=== PATIENT | male | born 2000 | race Caucasian/White ===

== ENCOUNTER → 2023-05-10 | Outpatient (CLI) | payer OTHER | END | disposition home or self-care (01) | LOC: LABMN 12:04 | PROVIDERS: ATTEND Chiropractor | DX: E29.1 Testicular hypofunction (principal) | CPT/HCPCS: 84402; 84403 ==

== ENCOUNTER 2023-07-02 14:25 | Inpatient (IN) | payer OTHER ==
[~2023-07-02] VITALS: Ht 177.8 cm; Wt 80.3 kg
[2023-07-02 14:30] VITALS: BP 110/59; PULSE 65; RESP 18; TEMP 97.6; O2SAT 99
[2023-07-02] MEDS ORDERED: ACETAMINOPHEN 325 MG TABLET PO PRN (15:15)
[2023-07-02] MEDS: RIVAROXABAN 15 MG TABLET PO SCH (17:34)
[2023-07-02] MEDS ORDERED: QUEtiapine FUMARATE 25 MG TABLET PO PRN (19:15)
[2023-07-02 20:10] VITALS: BP 96/55; PULSE 87; RESP 19; TEMP 97.5; O2SAT 98
[2023-07-02] MEDS: MELATONIN 3 MG TABLET PO SCH (20:10)
[2023-07-02] MEDS: LevETIRAcetam 500 MG TABLET PO SCH (20:10)
[2023-07-02] MEDS: QUEtiapine FUMARATE 25 MG TABLET PO SCH (20:10)
[2023-07-02] MEDS: ETHYL ALCOHOL 62% ANTISEPTIC NASAL SANITIZER 0.6 ML AMPUL NASAL SCH (20:25)
[2023-07-02 20:57] VITALS: O2SAT 98
[2023-07-02] MEDS ORDERED: CARBOXYMETHYLCELLULOSE SODIUM 0.4 ML OPHTHALMIC SOLUTION [PF] OU PRN (23:30)
[2023-07-02] MEDS ORDERED: LACTULOSE 20 GM/30 ML SOLUTION UDCUP PO PRN (23:30)
[2023-07-03] MEDS: RIVAROXABAN 15 MG TABLET PO SCH ×2 (08:13→16:26)
[2023-07-03] MEDS: ETHYL ALCOHOL 62% ANTISEPTIC NASAL SANITIZER 0.6 ML AMPUL NASAL SCH ×2 (08:13→20:27)
[2023-07-03] MEDS: DIVALPROEX SODIUM 500 MG DR TABLET PO SCH ×3 (08:14→20:27)
[2023-07-03] MEDS: MULTIVITAMINS WITH MINERALS, THERAPEUTIC 15 ML UDCUP PO SCH (08:14)
[2023-07-03] MEDS: LevETIRAcetam 500 MG TABLET PO SCH ×2 (08:15→20:26)
[2023-07-03 08:41] VITALS: BP 129/54; PULSE 64; RESP 18; TEMP 97.8; O2SAT 98
[2023-07-03] MEDS ORDERED: QUEtiapine FUMARATE 25 MG TABLET PO SCH (09:00)
[2023-07-03 17:14] LABS: EOSINOPHILS % (AUTO) 2.2 % (1.0-6.0); HEMATOCRIT 44.5 % (41-53); LYMPHOCYTES # (AUTO) 1.8 K/uL (1.0-4.8); LYMPHOCYTES % (AUTO) 37.9 % (22.0-44.0); MEAN CORPUSCULAR HGB CONC 33.7 G/dL (31.0-37.0); MEAN CORPUSCULAR VOLUME 86 fL (80-100); MONOCYTES # (AUTO) 0.4 K/uL (0.1-1.0); MONOCYTES % (AUTO) 8.6 % (2.0-9.0); NEUTROPHILS # (AUTO) 2.4 K/uL (1.8-7.7); NEUTROPHILS % (AUTO) 50.3 % (40.0-70.0); PLATELET COUNT (AUTO) 198 K/uL (150-450); RED BLOOD CELL COUNT(AUTO) 5.17 MIL/uL (4.50-5.90); RED CELL DISTRIBUTION WIDTH 14.5 % (11.5-14.5)
[2023-07-03 17:34] LABS: ALANINE AMINOTRANSFERASE 49 U/L (12-78); ALBUMIN 3.7 g/dL (3.4-5.0); ALKALINE PHOSPHATASE 111 U/L (46-116); ANION GAP 10 mmol/L (8-16); ASPARTATE AMINOTRANSFERASE 17 U/L (15-37); BILIRUBIN,TOTAL 1.3 mg/dL (0.1-1.0); CALCIUM, TOTAL 9.5 mg/dL (8.8-10.5); CARBON DIOXIDE 28 mmol/L (22-29); CHLORIDE 100 mmol/L (98-107); CREATININE 1.04 mg/dL (0.60-1.30); GLOMERULAR FILTR. RATE CALC > 60 mL/min (>60); GLUCOSE,RANDOM 138 mg/dL (70-110); POTASSIUM 3.7 mmol/L (3.5-5.1); SODIUM SERUM 138 mmol/L (136-145); TOTAL PROTEIN, SERUM 6.9 g/dL (6.4-8.2)
[2023-07-03] MEDS: MELATONIN 3 MG TABLET PO SCH (20:26)
[2023-07-03] MEDS: SENNOSIDES 8.6 MG TABLET PO SCH (20:26)
[2023-07-03] MEDS: QUEtiapine FUMARATE 25 MG TABLET PO SCH (20:27)
[2023-07-03 20:29] VITALS: BP 121/79; PULSE 100; PULSE 99; RESP 20; O2SAT 99
[2023-07-03 22:02] VITALS: O2SAT 99
[2023-07-04] MEDS: ETHYL ALCOHOL 62% ANTISEPTIC NASAL SANITIZER 0.6 ML AMPUL NASAL SCH ×2 (08:04→20:01)
[2023-07-04] MEDS: RIVAROXABAN 15 MG TABLET PO SCH ×2 (08:04→16:36)
[2023-07-04] MEDS: MULTIVITAMINS WITH MINERALS, THERAPEUTIC 15 ML UDCUP PO SCH (08:04)
[2023-07-04] MEDS: DIVALPROEX SODIUM 500 MG DR TABLET PO SCH ×3 (08:04→20:02)
[2023-07-04 08:05] VITALS: BP 114/57; PULSE 78; RESP 18; TEMP 98; O2SAT 98
[2023-07-04] MEDS: LevETIRAcetam 500 MG TABLET PO SCH ×2 (08:05→20:01)
[2023-07-04] MEDS: QUEtiapine FUMARATE 25 MG TABLET PO SCH ×2 (09:33→20:02)
[2023-07-04] MEDS ORDERED: QUEtiapine FUMARATE 25 MG TABLET PO PRN (10:30)
[2023-07-04 11:12] VITALS: O2SAT 98
[2023-07-04 12:30] VITALS: BP 122/68; PULSE 75; RESP 18; TEMP 98.4; O2SAT 98
[2023-07-04] MEDS: PROPRANOLOL HCL 20 MG TABLET PO SCH ×3 (12:31→23:51)
[2023-07-04 18:23] VITALS: BP 127/71; PULSE 72; RESP 18; O2SAT 98
[2023-07-04] MEDS: MELATONIN 3 MG TABLET PO SCH (20:01)
[2023-07-04] MEDS: SENNOSIDES 8.6 MG TABLET PO SCH (20:02)
[2023-07-04 23:50] VITALS: BP 83/59; PULSE 63; PULSE 69; RESP 18; O2SAT 99
[2023-07-04 23:55] VITALS: BP 98/44; PULSE 63
[2023-07-05] VITALS (8 sets, daily range): BP systolic 103–126; BP diastolic 58–75; PULSE 64–80; RESP 18–19; TEMP 97.8–98.2; O2SAT 98–99
[2023-07-05] MEDS: PROPRANOLOL HCL 20 MG TABLET PO SCH ×6 (05:39→20:05)
[2023-07-05] MEDS: RIVAROXABAN 15 MG TABLET PO SCH ×2 (08:15→16:39)
[2023-07-05] MEDS: DIVALPROEX SODIUM 500 MG DR TABLET PO SCH ×3 (08:15→20:05)
[2023-07-05] MEDS: ETHYL ALCOHOL 62% ANTISEPTIC NASAL SANITIZER 0.6 ML AMPUL NASAL SCH ×3 (08:16→21:00)
[2023-07-05] MEDS: QUEtiapine FUMARATE 25 MG TABLET PO SCH ×2 (08:16→20:06)
[2023-07-05] MEDS: MULTIVITAMINS WITH MINERALS, THERAPEUTIC 15 ML UDCUP PO SCH (08:16)
[2023-07-05] MEDS: LevETIRAcetam 500 MG TABLET PO SCH ×2 (08:17→20:05)
[2023-07-05] MEDS: SENNOSIDES 8.6 MG TABLET PO SCH (20:05)
[2023-07-05] MEDS: MELATONIN 3 MG TABLET PO SCH (20:05)
[2023-07-06] VITALS: BP 100/48; PULSE 66
[2023-07-06] MEDS: LevETIRAcetam 500 MG TABLET PO SCH ×2 (08:51→20:02)
[2023-07-06] MEDS: QUEtiapine FUMARATE 25 MG TABLET PO SCH ×2 (08:54→20:05)
[2023-07-06] MEDS: RIVAROXABAN 15 MG TABLET PO SCH ×2 (08:54→17:56)
[2023-07-06] MEDS: ETHYL ALCOHOL 62% ANTISEPTIC NASAL SANITIZER 0.6 ML AMPUL NASAL SCH ×2 (08:55→20:01)
[2023-07-06] MEDS: DIVALPROEX SODIUM 500 MG DR TABLET PO SCH ×3 (08:56→20:01)
[2023-07-06] MEDS: PROPRANOLOL HCL 20 MG TABLET PO SCH ×4 (08:56→20:03)
[2023-07-06 09:41] VITALS: BP 101/63; PULSE 56; RESP 18; TEMP 97.9; O2SAT 98
[2023-07-06] MEDS: MULTIVITAMINS WITH MINERALS, THERAPEUTIC 15 ML UDCUP PO SCH (09:43)
[2023-07-06 10:30] VITALS: O2SAT 98
[2023-07-06] MEDS: MELATONIN 3 MG TABLET PO SCH (20:03)
[2023-07-06 20:04] VITALS: BP 103/60; PULSE 63; RESP 19; O2SAT 98
[2023-07-06] MEDS: SENNOSIDES 8.6 MG TABLET PO SCH (20:04)
[2023-07-06 21:31] VITALS: O2SAT 98
[2023-07-07 08:30] VITALS: BP 101/53; PULSE 51; RESP 18; TEMP 98; O2SAT 98
[2023-07-07] MEDS: PROPRANOLOL HCL 20 MG TABLET PO SCH ×4 (09:00→20:08)
[2023-07-07] MEDS: MULTIVITAMINS WITH MINERALS, THERAPEUTIC 15 ML UDCUP PO SCH (09:24)
[2023-07-07] MEDS: LevETIRAcetam 500 MG TABLET PO SCH ×2 (09:24→20:11)
[2023-07-07] MEDS: RIVAROXABAN 15 MG TABLET PO SCH ×2 (09:25→16:57)
[2023-07-07] MEDS: DIVALPROEX SODIUM 500 MG DR TABLET PO SCH ×3 (09:25→20:07)
[2023-07-07] MEDS: ETHYL ALCOHOL 62% ANTISEPTIC NASAL SANITIZER 0.6 ML AMPUL NASAL SCH ×2 (09:25→20:07)
[2023-07-07] MEDS: QUEtiapine FUMARATE 25 MG TABLET PO SCH ×2 (09:27→20:13)
[2023-07-07 13:52] VITALS: O2SAT 98
[2023-07-07] MEDS: MELATONIN 3 MG TABLET PO SCH (20:11)
[2023-07-07] MEDS: SENNOSIDES 8.6 MG TABLET PO SCH (20:12)
[2023-07-07 22:36] VITALS: BP 116/58; PULSE 58; RESP 18; TEMP 97.8; O2SAT 98
[2023-07-07 22:54] VITALS: O2SAT 100
[2023-07-08] MEDS: DIVALPROEX SODIUM 500 MG DR TABLET PO SCH ×3 (08:27→20:17)
[2023-07-08] MEDS: RIVAROXABAN 15 MG TABLET PO SCH ×2 (08:27→16:46)
[2023-07-08] MEDS: LevETIRAcetam 500 MG TABLET PO SCH ×2 (08:27→20:18)
[2023-07-08] MEDS: QUEtiapine FUMARATE 25 MG TABLET PO SCH ×2 (08:28→20:19)
[2023-07-08] MEDS: MULTIVITAMINS WITH MINERALS, THERAPEUTIC 15 ML UDCUP PO SCH (08:29)
[2023-07-08] MEDS: ETHYL ALCOHOL 62% ANTISEPTIC NASAL SANITIZER 0.6 ML AMPUL NASAL SCH ×2 (08:29→20:20)
[2023-07-08] MEDS: PROPRANOLOL HCL 20 MG TABLET PO SCH ×4 (09:47→20:17)
[2023-07-08 09:53] VITALS: BP 118/68; PULSE 55; RESP 18; TEMP 97.6; O2SAT 96
[2023-07-08 10:01] VITALS: O2SAT 96
[2023-07-08 13:15] VITALS: BP 111/54; PULSE 73
[2023-07-08 16:30] VITALS: BP 106/58; PULSE 55
[2023-07-08] MEDS: MELATONIN 3 MG TABLET PO SCH (20:18)
[2023-07-08] MEDS: SENNOSIDES 8.6 MG TABLET PO SCH (20:18)
[2023-07-08 21:00] VITALS: O2SAT 98
[2023-07-08 23:49] VITALS: BP 106/51; PULSE 62; RESP 18; TEMP 97.7; O2SAT 98
[2023-07-09 08:05] VITALS: BP 122/64; PULSE 75; RESP 18; TEMP 98; O2SAT 98
[2023-07-09] MEDS: ETHYL ALCOHOL 62% ANTISEPTIC NASAL SANITIZER 0.6 ML AMPUL NASAL SCH ×2 (08:28→20:04)
[2023-07-09] MEDS: QUEtiapine FUMARATE 25 MG TABLET PO SCH ×2 (08:28→20:05)
[2023-07-09] MEDS: LevETIRAcetam 500 MG TABLET PO SCH ×2 (08:29→20:04)
[2023-07-09] MEDS: PROPRANOLOL HCL 20 MG TABLET PO SCH ×4 (08:30→20:04)
[2023-07-09] MEDS: DIVALPROEX SODIUM 500 MG DR TABLET PO SCH ×3 (08:30→20:04)
[2023-07-09] MEDS: MULTIVITAMINS WITH MINERALS, THERAPEUTIC 15 ML UDCUP PO SCH (08:30)
[2023-07-09] MEDS: RIVAROXABAN 15 MG TABLET PO SCH ×2 (08:30→16:56)
[2023-07-09 12:50] VITALS: BP 124/67; PULSE 68; RESP 18; O2SAT 98
[2023-07-09 13:22] VITALS: O2SAT 98
[2023-07-09] MEDS: MELATONIN 3 MG TABLET PO SCH (20:04)
[2023-07-09] MEDS: SENNOSIDES 8.6 MG TABLET PO SCH (20:05)
[2023-07-09 20:15] VITALS: BP 111/58; PULSE 68; RESP 19; O2SAT 100
[2023-07-09 21:00] VITALS: O2SAT 100
[2023-07-10 07:15] VITALS: BP 129/58; PULSE 68; RESP 18; TEMP 97.9; O2SAT 100
[2023-07-10] MEDS: ETHYL ALCOHOL 62% ANTISEPTIC NASAL SANITIZER 0.6 ML AMPUL NASAL SCH ×2 (07:18→19:37)
[2023-07-10] MEDS: QUEtiapine FUMARATE 25 MG TABLET PO SCH ×2 (07:18→19:38)
[2023-07-10] MEDS: DIVALPROEX SODIUM 500 MG DR TABLET PO SCH ×3 (07:18→19:38)
[2023-07-10] MEDS: PROPRANOLOL HCL 20 MG TABLET PO SCH ×4 (07:19→19:38)
[2023-07-10] MEDS: LevETIRAcetam 500 MG TABLET PO SCH ×2 (07:19→19:38)
[2023-07-10] MEDS: RIVAROXABAN 15 MG TABLET PO SCH ×2 (07:19→16:34)
[2023-07-10] MEDS: MULTIVITAMINS WITH MINERALS, THERAPEUTIC 15 ML UDCUP PO SCH (07:19)
[2023-07-10 11:42] VITALS: O2SAT 98
[2023-07-10 12:18] VITALS: BP 111/60; PULSE 60
[2023-07-10 16:32] VITALS: BP 110/52; PULSE 59
[2023-07-10] MEDS: MELATONIN 3 MG TABLET PO SCH (19:38)
[2023-07-10] MEDS: SENNOSIDES 8.6 MG TABLET PO SCH (19:49)
[2023-07-10 21:00] VITALS: BP 105/60; PULSE 83; RESP 19; O2SAT 97
[2023-07-10 21:13] VITALS: O2SAT 97
[2023-07-11] MEDS: RIVAROXABAN 15 MG TABLET PO SCH ×2 (08:04→16:23)
[2023-07-11] MEDS: ETHYL ALCOHOL 62% ANTISEPTIC NASAL SANITIZER 0.6 ML AMPUL NASAL SCH ×2 (08:04→20:09)
[2023-07-11] MEDS: MULTIVITAMINS WITH MINERALS, THERAPEUTIC 15 ML UDCUP PO SCH (08:05)
[2023-07-11] MEDS: DIVALPROEX SODIUM 500 MG DR TABLET PO SCH ×3 (08:06→20:09)
[2023-07-11] MEDS: PROPRANOLOL HCL 20 MG TABLET PO SCH ×4 (08:08→20:09)
[2023-07-11] MEDS: QUEtiapine FUMARATE 25 MG TABLET PO SCH ×2 (08:10→20:11)
[2023-07-11] MEDS: LevETIRAcetam 500 MG TABLET PO SCH ×2 (08:12→20:09)
[2023-07-11 08:30] VITALS: BP 113/67; PULSE 73; RESP 18; TEMP 97.4; O2SAT 99
[2023-07-11 12:02] VITALS: O2SAT 99
[2023-07-11] MEDS ORDERED: TUBERCULIN, PURIFIED PROTEIN DERIVATIVE 5 TU/0.1 ML SYRINGE ID ONE (12:30)
[2023-07-11 16:05] VITALS: BP 108/56; PULSE 66; RESP 18
[2023-07-11] MEDS ORDERED: RIVAROXABAN 20 MG TABLET PO SCH (17:00)
[2023-07-11] MEDS: MELATONIN 3 MG TABLET PO SCH (20:10)
[2023-07-11] MEDS: SENNOSIDES 8.6 MG TABLET PO SCH (20:10)
[2023-07-11 21:00] VITALS: O2SAT 99
[2023-07-11 22:02] VITALS: BP 102/67; PULSE 62; RESP 20; TEMP 98.6; O2SAT 99
[2023-07-12 08:10] VITALS: BP 111/54; PULSE 60; RESP 18; TEMP 96.7; O2SAT 100
[2023-07-12] MEDS: ETHYL ALCOHOL 62% ANTISEPTIC NASAL SANITIZER 0.6 ML AMPUL NASAL SCH ×3 (09:01→20:44)
[2023-07-12] MEDS: MULTIVITAMINS WITH MINERALS, THERAPEUTIC 15 ML UDCUP PO SCH (09:01)
[2023-07-12] MEDS: RIVAROXABAN 15 MG TABLET PO SCH ×2 (09:01→16:35)
[2023-07-12] MEDS: LevETIRAcetam 500 MG TABLET PO SCH ×2 (09:02→20:31)
[2023-07-12] MEDS: QUEtiapine FUMARATE 25 MG TABLET PO SCH ×2 (09:02→20:31)
[2023-07-12] MEDS: DIVALPROEX SODIUM 500 MG DR TABLET PO SCH ×3 (09:02→20:31)
[2023-07-12] MEDS: PROPRANOLOL HCL 20 MG TABLET PO SCH ×4 (09:02→20:31)
[2023-07-12 12:35] VITALS: BP 95/54; PULSE 67
[2023-07-12 12:38] VITALS: BP 96/57; PULSE 70; RESP 18
[2023-07-12 16:00] VITALS: BP 105/51; PULSE 69
[2023-07-12 20:10] VITALS: BP 109/54; PULSE 64; RESP 19; TEMP 97.8; O2SAT 98
[2023-07-12] MEDS: MELATONIN 3 MG TABLET PO SCH (20:31)
[2023-07-12] MEDS: SENNOSIDES 8.6 MG TABLET PO SCH (20:31)
[2023-07-12 23:10] VITALS: O2SAT 98
[2023-07-13] MEDS: MULTIVITAMINS WITH MINERALS, THERAPEUTIC 15 ML UDCUP PO SCH (08:49)
[2023-07-13] MEDS: LevETIRAcetam 500 MG TABLET PO SCH ×2 (08:50→20:07)
[2023-07-13] MEDS: DIVALPROEX SODIUM 500 MG DR TABLET PO SCH ×3 (08:51→20:07)
[2023-07-13] MEDS: ETHYL ALCOHOL 62% ANTISEPTIC NASAL SANITIZER 0.6 ML AMPUL NASAL SCH ×2 (08:51→20:08)
[2023-07-13] MEDS: PROPRANOLOL HCL 20 MG TABLET PO SCH ×4 (08:52→20:08)
[2023-07-13] MEDS: QUEtiapine FUMARATE 25 MG TABLET PO SCH ×2 (08:53→20:07)
[2023-07-13 09:10] VITALS: BP 111/43; PULSE 69; RESP 18; TEMP 98; O2SAT 99
[2023-07-13] MEDS: RIVAROXABAN 20 MG TABLET PO SCH (17:33)
[2023-07-13 20:07] VITALS: BP 92/39; PULSE 63; RESP 17; TEMP 97.7; O2SAT 98
[2023-07-13] MEDS: MELATONIN 3 MG TABLET PO SCH (20:07)
[2023-07-13] MEDS: SENNOSIDES 8.6 MG TABLET PO SCH (20:08)
[2023-07-14] MEDS: LevETIRAcetam 500 MG TABLET PO SCH ×2 (08:08→19:36)
[2023-07-14] MEDS: PROPRANOLOL HCL 20 MG TABLET PO SCH ×4 (08:09→19:36)
[2023-07-14] MEDS: MULTIVITAMINS WITH MINERALS, THERAPEUTIC 15 ML UDCUP PO SCH (08:09)
[2023-07-14] MEDS: DIVALPROEX SODIUM 500 MG DR TABLET PO SCH ×3 (08:09→19:36)
[2023-07-14] MEDS: QUEtiapine FUMARATE 25 MG TABLET PO SCH ×2 (08:09→19:35)
[2023-07-14] MEDS: ETHYL ALCOHOL 62% ANTISEPTIC NASAL SANITIZER 0.6 ML AMPUL NASAL SCH ×2 (08:09→19:34)
[2023-07-14 10:07] VITALS: BP 124/70; PULSE 67; RESP 18; TEMP 98.1; O2SAT 98
[2023-07-14 12:24] VITALS: BP 122/68; PULSE 70; RESP 18; TEMP 98.4; O2SAT 98
[2023-07-14 16:07] VITALS: BP 120/64; PULSE 68; RESP 18; O2SAT 98
[2023-07-14] MEDS: RIVAROXABAN 20 MG TABLET PO SCH (16:28)
[2023-07-14] MEDS: SENNOSIDES 8.6 MG TABLET PO SCH (19:35)
[2023-07-14] MEDS: MELATONIN 3 MG TABLET PO SCH (19:35)
[2023-07-14 20:00] VITALS: BP 114/66; PULSE 91; RESP 19; TEMP 98; O2SAT 98
[2023-07-14 20:24] VITALS: O2SAT 98
[2023-07-15] MEDS ORDERED: DIVA-112 PO ×2 (01:03→10:17)
[2023-07-15] MEDS ORDERED: MULT9LIQ7 PO (01:03)
[2023-07-15] MEDS ORDERED: MELA3TAB89 PO ×2 (01:03→10:17)
[2023-07-15] MEDS ORDERED: SENN1TAB86 PO (01:03)
[2023-07-15] MEDS ORDERED: RIVA20TA PO ×2 (01:03→10:17)
[2023-07-15] MEDS ORDERED: QUET25TA PO ×2 (01:03)
[2023-07-15] MEDS ORDERED: LEVE500T20 PO (01:03)
[2023-07-15] MEDS ORDERED: PROP20TA18 PO (01:03)
[2023-07-15 08:00] VITALS: BP 104/48; PULSE 67; RESP 16; TEMP 97.9; O2SAT 100
[2023-07-15] MEDS: ETHYL ALCOHOL 62% ANTISEPTIC NASAL SANITIZER 0.6 ML AMPUL NASAL SCH ×2 (08:04→19:25)
[2023-07-15] MEDS: MULTIVITAMINS WITH MINERALS, THERAPEUTIC 15 ML UDCUP PO SCH (08:04)
[2023-07-15] MEDS: DIVALPROEX SODIUM 500 MG DR TABLET PO SCH ×3 (08:05→19:25)
[2023-07-15] MEDS: LevETIRAcetam 500 MG TABLET PO SCH ×2 (08:05→19:26)
[2023-07-15] MEDS: PROPRANOLOL HCL 20 MG TABLET PO SCH ×4 (08:05→19:26)
[2023-07-15] MEDS: QUEtiapine FUMARATE 25 MG TABLET PO SCH ×2 (08:06→19:27)
[2023-07-15] MEDS ORDERED: LEVE500T8 PO (10:17)
[2023-07-15] MEDS ORDERED: QUET25TA36 PO ×2 (10:17)
[2023-07-15] MEDS ORDERED: PROP20TA96 PO (10:17)
[2023-07-15 12:20] VITALS: BP 111/73; PULSE 87
[2023-07-15 16:51] VITALS: BP 106/59; PULSE 68
[2023-07-15] MEDS: RIVAROXABAN 20 MG TABLET PO SCH (16:54)
[2023-07-15] MEDS ORDERED: DIPHENOXYLATE/ATROP 2.5-0.025 MG TABLET PO ONE (18:45)
[2023-07-15] MEDS: MELATONIN 3 MG TABLET PO SCH (19:26)
[2023-07-15] MEDS: SENNOSIDES 8.6 MG TABLET PO SCH (19:46)
[2023-07-15 20:00] VITALS: BP 102/58; PULSE 81; RESP 19; O2SAT 97
[2023-07-15 22:33] VITALS: O2SAT 98
[2023-07-16 07:29] LABS: HEMATOCRIT 41.7 % (41-53); HEMOGLOBIN 14.2 g/dL (13.5-17.5); MEAN CORPUSCULAR HGB CONC 34.1 G/dL (31.0-37.0); MEAN CORPUSCULAR VOLUME 85 fL (80-100); PLATELET COUNT (AUTO) 122 K/uL (150-450); RED CELL DISTRIBUTION WIDTH 13.3 % (11.5-14.5)
[2023-07-16] MEDS: DIVALPROEX SODIUM 500 MG DR TABLET PO SCH (07:35)
[2023-07-16] MEDS: ETHYL ALCOHOL 62% ANTISEPTIC NASAL SANITIZER 0.6 ML AMPUL NASAL SCH (07:35)
[2023-07-16] MEDS: MULTIVITAMINS WITH MINERALS, THERAPEUTIC 15 ML UDCUP PO SCH (07:35)
[2023-07-16] MEDS: PROPRANOLOL HCL 20 MG TABLET PO SCH (07:36)
[2023-07-16] MEDS: LevETIRAcetam 500 MG TABLET PO SCH (07:38)
[2023-07-16] MEDS: QUEtiapine FUMARATE 25 MG TABLET PO SCH (07:39)
[2023-07-16 07:41] LABS: ANION GAP 6 mmol/L (8-16); CALCIUM, TOTAL 9.1 mg/dL (8.8-10.5); CARBON DIOXIDE 30 mmol/L (22-29); CHLORIDE 106 mmol/L (98-107); CREATININE 0.84 mg/dL (0.60-1.30); GLOMERULAR FILTR. RATE CALC > 60 mL/min (>60); GLUCOSE,RANDOM 82 mg/dL (70-110); POTASSIUM 4.8 mmol/L (3.5-5.1); SODIUM SERUM 142 mmol/L (136-145)
[2023-07-16 08:05] VITALS: BP 122/77; PULSE 72; RESP 20; TEMP 97.9; O2SAT 100
[2023-07-16 08:16] LABS: BAND NEUTROPHILS % (MANUAL) 0 % (0-5)
[2023-07-16 08:17] LABS: LYMPHOCYTES % (MANUAL) 83 % (22-44); MONOCYTES % (MANUAL) 3 % (2-9); SEGMENTED NEUTROPHILS % 14 % (40-70)
[2023-07-16 10:05] VITALS: O2SAT 100
== END 2023-07-16 11:00 | disposition home or self-care (01) | DRG 55 ==
LOC: 2WR 14:25
PROVIDERS: ADMIT Physical Medicine & Rehabilitation; ATTEND Physical Medicine & Rehabilitation
DX: S06.5X0A Traumatic subdural hemorrhage without loss of consciousness, initial encounter (principal); S06.4XAA Epidural hemorrhage with loss of consciousness status unknown, initial encounter; J96.90 Respiratory failure, unspecified, unspecified whether with hypoxia or hypercapnia; J95.851 Ventilator associated pneumonia; S22.069A Unspecified fracture of T7-T8 vertebra, initial encounter for closed fracture; K59.2 Neurogenic bowel, not elsewhere classified; S02.101A Fracture of base of skull, right side, initial encounter for closed fracture; R26.9 Unspecified abnormalities of gait and mobility; R49.1 Aphonia; R41.89 Other symptoms and signs involving cognitive functions and awareness; R40.2430 Glasgow coma scale score 3-8, unspecified time; S62.309A Unspecified fracture of unspecified metacarpal bone, initial encounter for closed fracture; E46 Unspecified protein-calorie malnutrition; S62.102A Fracture of unspecified carpal bone, left wrist, initial encounter for closed fracture; S62.101A Fracture of unspecified carpal bone, right wrist, initial encounter for closed fracture; R45.87 Impulsiveness; S06.6X0A Traumatic subarachnoid hemorrhage without loss of consciousness, initial encounter; G40.909 Epilepsy, unspecified, not intractable, without status epilepticus; N31.9 Neuromuscular dysfunction of bladder, unspecified; R15.9 Full incontinence of feces; R48.2 Apraxia; R13.10 Dysphagia, unspecified; Z79.01 Long term (current) use of anticoagulants; Z91.81 History of falling; Z78.1 Physical restraint status; V29.99XA Rider (driver) (passenger) of other motorcycle injured in unspecified traffic accident, initial encounter; Y93.89 Activity, other specified; Y92.89 Other specified places as the place of occurrence of the external cause; Y99.8 Other external cause status
CPT/HCPCS: 71045; 80048; 80053; 80164; 85025; 87081; 92507; 92523; 92526; 92610; 93925; 93971; 97112; 97116; 97163; 97167; 97530; 97535; 99366; 36415-L1; 36415-TC